=== PATIENT | female | born 1940 | race Caucasian/White ===

== ENCOUNTER → 2016-07-01 | Outpatient (CLI) | payer OTHER, MEDICARE ==
[~2016-07-01] VITALS: Ht 160 cm; Wt 96.2 kg
[~2016-07-01] MED LIST: AMBIEN 10 MG TA10 MG PO; APAP500 PO; APAP650 PO; ATIVAN; AUGMENTIN 875875 M1 PO; B COMPLEX-VITA1 EACH PO; CELEBREX; CELEBREX 200 M200 MG PO; CYMBALTA30 MG PO; DEPO-ESTRAD5 MG/1 ML IM; DILAUDID 2 MG TA2 MG PO; FUROSEMIDE 40 M40 M1 PO; LEVOTHROID150 MC1 PO; LEVOTHROID300 MCG PO; LEVOTHYROXINE0.2 M1 PO; LEXAPRO 10 MG T10 M1 PO; LIDODERM 5%1 PATCH TOP; LOMOTIL TABLET1 EACH PO; LOTENSIN20 MG PO; MS CONTIN15 MG PO; MULTI-VITAMIN1 EAC5 PO; MULTIVITAMINS; NEXIUM40 MG PO; NORCO 10-325 T1 EACH PO; NORCO 7.5-3251 EACH PO; NORVASC5 MG PO; OXYCONTIN15 MG PO; OXYCONTIN20 M1 PO; PERCOCET 5-3251 EACH PO; PERCOCET 7.5-31 EACH PO; PRENATAL; PROZAC20 MG/5 ML PO; SEROQUEL; SEROQUEL 50 MG50 M1 NG; SEROQUEL 50 MG50 MG PO; TOPROL XL 100M100 M1 PO; TOPROL XL50 MG PO; TRAZODONE HCL50 MG PO; TRIAMTERENE-HC1 EAC1; ULTRAM 50MG TAB50 MG PO; VALIUM10 MG PO; VITAMIN D 5050000 I1 PO; VOLTAREN GEL 1100 G1 TOP; XANAX 0.25 MG0.25 MG PO; unknown meds
--- NOTE | ~2016-07-01 | HPC ---
[facility] [place] [address] PAIN MANAGEMENT CONSULTATION Name: EMILYBASILIA [id number] Admission: 07/01/16 Attend Phys: Foreign Mir DO Discharge: Date of : 39 Report #: [id number] THIS REPORT FOR: //name// CC: Zee Mir The patient is a 76-year-old female, well known to the pain clinic, typically treated for lumbar radiculopathy, status post decompressive laminectomy, axial back pain, lumbar spondylosis, DJD affecting knees and hips, requiring complex medication management. Last seen in the pain clinic on 06/03/2015. We had rotated from OxyContin 20 mg b.i.d. to MS Contin 15 mg q. 8 hours due to cost concerns. We had rotated from hydrocodone to hydromorphone. Due to lack of efficacy, we have rotated back to hydrocodone 10/325 one tablet 2-3 times a day at last visit. Continue Voltaren gel topically for her knees, Xanax 0.25 mg at bedtime for sleep. The patient had also resumed gabapentin. She has been on this off and on for many years. Started back on one in the morning and two at night. She returns to pain clinic today, we had a prolonged visit from 09:10 to 09:35. Greater than 50% of this 25-minute visit was spent counseling the patient, reviewing therapeutic options. In retrospect, we have given the patient a host of interventional therapies, unfortunately most recently, these interventions have really afforded nominal efficacy, including epidural injection on 04/02/2016. Prior she had had epidural injection back in 2013 and 2011. Really all with no efficacy. We had done some facet joint injections, all with transient efficacy. We have been basically medically managing the patient with various medication, she has had trouble with escalation of opiates in the past. She returns to pain clinic today noting that when she started back on gabapentin, she developed profound lower extremity edema. She discontinued the gabapentin that seemed to improve, curiously she states she developed palmar pruritus attributed to the morphine. She discontinued morphine and claims that the itching in her palms got better. She has continued with hydrocodone 10/325 up to 2-3 a day, does not afford adequate efficacy. Rates her pain on 9-10 on a 0-10 visual analog scale. She states she felt nauseous for a few days after she stopped the morphine. I suspect this was a component of opiate withdrawal symptoms. PHYSICAL EXAMINATION: Today, she is a 76-year-old female, elevated BMI of 37.6 kilograms per meter squared. Blood pressure is modestly elevated as well 145/92, pulse 103, respirations are 14. Alert and oriented to person, place and time, judged to be a reasonable historian. Rises from the chair using armrest. Has an antalgic gait. Modestly ataxic. Though she admits to no falls recently, [facility] [address] [place] [address] PAIN MANAGEMENT CONSULTATION Name: EMILYBASILIA Room #: REG LIVE Bustos#: [id number] Admission: 07/01/16 Attend Phys: Foreign Mir, Discharge: Date of : 39 Report #: [id number] has loss of left dorsiflexion strength, otherwise lower extremity strength is diminished, but symmetric. Straight leg raise is negative at this time. She has tenderness across the low back. ASSESSMENT: Lumbar radiculopathy status post decompressive laminectomy, axial back pain, lumbar spondylosis; degenerative joint disease primarily affecting lower extremities, hips, and knees, requiring complex medication management. We reviewed the fact that opiate medications are being used to provide analgesia adequate to support activities of daily living, not attempting to achieve a specific pain score on the 0-10 Visual Analog Scale. The current opiate medications are providing sufficient analgesia to allow the patient to participate in activities of daily living. The patient is not exhibiting any aberrant behavior suggestive of drug diversion. The patient is not having any adverse reactions to medications. The patient is not suffering from daytime somnolence or mental acuity changes. The patient is managing opiate-induced constipation with appropriate fobg-rqv-bzgdaqn agents and dietary considerations. The patient was counseled on concern for caution with operating a motor vehicle while using opiate medications. A physical exam was performed and the patient's functional status was evaluated. All patients with back pain were advised against the bed rest greater than 4 days and were advised to return to normal activities. Pain score assessment was noted and the treatment plan was reviewed with the patient. All current medications, both prescribed and OTC were reviewed and reconciled on the electronic medical record. Tobacco screening was accomplished and smoking cessation was advised when indicated. BMI was noted and diet/exercise modification was recommended for all patients following outside normal parameters. I reviewed with the patient today their responsibilities to safeguard prescription medications, reviewed their responsibility to utilize medications only as prescribed by the physician. They are to seek and receive pain medications only from 1 physician group ( [facility]). They are to use 1 pharmacy and keep the clinic informed if they change pharmacies. Their responsibilities include making followup visits in a timely fashion and to avoid abrupt discontinuation of medication usage. Their responsibilities further include bringing their medications (bottles from the pharmacy with residual pills) to the visit for possible confirmation of pill counts and the patient understands it is their responsibility to submit to random drug screens to ensure both that the medications prescribed are present, and that no other controlled substances are present. All prescriptions provided today were generated electronically. RECOMMENDATIONS: 1. Urine drug screen today. No aberrant behavior suggestive for drug [address] [address] PAIN MANAGEMENT CONSULTATION Name: EMILYBASILIA M Room #: REG [facility] Juli#: [id number] Admission: 07/01/16 Attend Phys: Foreign Mir DO Discharge: Date of : 39 Report #: [id number] diversion, simply complying with our opiate consent to treat contract, noticing that it has been quite some time since her last urine drug screen, in fact, it appears the last one was in 2009. 2. We will revert back to hydrocodone 10/325, limit 4 tablets a day with no long acting opiate. Obviously discontinue gabapentin, and we will not consider restarting this as she has had significant lower extremity edema with this. Continue Voltaren gel topically for her knees. Xanax 0.25 mg at bedtime to help with sleep. Continue to follow up with her mechanic general operational test physician for chronic anxiety medications including Seroquel and trazodone. I have taken the liberty of writing for 3 months of current medication. Follow up at that time, earlier if needed. <ELECTRONICALLY SIGNED> By: Foreign Mir DO 07/02/16 0704 [id number] [id number] Foreign Mir DO /isaac
[2016-07-01 08:55] VITALS: BP 145/92
== END | disposition home or self-care (01) ==
LOC: PAIN 06:42
DX: M47.896 Other spondylosis, lumbar region (principal); G89.29 Other chronic pain; M54.9 Dorsalgia, unspecified; M16.0 Bilateral primary osteoarthritis of hip; M17.0 Bilateral primary osteoarthritis of knee; Z98.890 Other specified postprocedural states; Z87.891 Personal history of nicotine dependence

== ENCOUNTER → 2016-09-20 | Outpatient (CLI) | payer OTHER, MEDICARE ==
[~2016-09-20] VITALS: Ht 160 cm; Wt 93.4 kg
[~2016-09-20] MED LIST changes: +KLONOPIN0.5 MG PO
--- NOTE | ~2016-09-20 | HPC ---
[facility] [address] [place] [address] PAIN MANAGEMENT CONSULTATION Name: EMILYBASILIA Room #: REG [facility].#: [id number] Admission: 09/20/16 Attend Phys: Foreign Mir DO Discharge: Date of : 39 Report #: [id number] THIS REPORT FOR: //name// CC: Zee Mir SUBJECTIVE: The patient is a 76-year-old female, long treated for symptomatic lumbar radiculopathy status post decompressive laminectomy, lumbar spondylosis, DJD affecting knees requiring complex medication management. She is status post bilateral total knee arthroplasties. The left knee still has a little genu valgum deformity. We stopped the morphine at last visit, continue hydrocodone 10/325 four a day. Discontinued gabapentin due to his lower extremity edema. Tried low dose Xanax for sleep. We discontinued the morphine due to puritis. She returns to pain clinic today. She states medicines are actually doing fairly well except for sleep. She rates her pain an 8-9 on a 0-10 visual analog scale. States that she has difficult time with some of her housekeeping and walking. Otherwise, she notes she is having no side effects from the current medication. She notes her back surgery is some 10 years ago. She still has ongoing axial back pain. Epidural injections have not really afforded good relief. PHYSICAL EXAMINATION: VITAL SIGNS: A 76-year-old female, BMI is 36.5 kilograms per meter squared. Blood pressure is modestly elevated at 160/79, pulse 84, respirations 16. EXTREMITIES: Left leg does show some weakness compared to the right, perhaps 3-4/5, to all muscle groups tested; right is about 4/5. Straight leg raise is negative. Again, genu valgum deformity of the left knee, both knees are status post knee arthroplasties. Patellar and Achilles reflexes are absent. We reviewed the fact that opiate medications are being used to provide analgesia adequate to support activities of daily living, not attempting to achieve a specific pain score on the 0-10 Visual Analog Scale. The current opiate medications are providing sufficient analgesia to allow the patient to participate in activities of daily living. The patient is not exhibiting any aberrant behavior suggestive of drug diversion. The patient is not having any adverse reactions to medications. The patient is not suffering from daytime somnolence or mental acuity changes. The patient is managing opiate-induced constipation with appropriate ynxt-zab-yzanqgi agents and dietary considerations. The patient was counseled on concern for caution with operating a motor vehicle while using opiate medications. A physical exam was performed and the patient's functional status was evaluated. All patients with back pain were advised against the bed rest greater than [address] [place] [address] PAIN MANAGEMENT CONSULTATION Name: BASILIA DIAZ Room #: REG [facility] Bustos#: [id number] Admission: 09/20/16 Attend Phys: Foreign Mir DO Discharge: Date of : 39 Report #: [id number] days and were advised to return to normal activities. Pain score assessment was noted and the treatment plan was reviewed with the patient. All current medications, both prescribed and OTC were reviewed and reconciled on the electronic medical record. Tobacco screening was accomplished and smoking cessation was advised when indicated. BMI was noted and diet/exercise modification was recommended for all patients following outside normal parameters. I reviewed with the patient today their responsibilities to safeguard prescription medications, reviewed their responsibility to utilize medications only as prescribed by the physician. They are to seek and receive pain medications only from 1 physician group ( [facility]). They are to use 1 pharmacy and keep the clinic informed if they change pharmacies. Their responsibilities include making followup visits in a timely fashion and to avoid abrupt discontinuation of medication usage. Their responsibilities further include bringing their medications (bottles from the pharmacy with residual pills) to the visit for possible confirmation of pill counts and the patient understands it is their responsibility to submit to random drug screens to ensure both that the medications prescribed are present, and that no other controlled substances are present. All prescriptions provided today were generated electronically. RECOMMENDATION: Long discussion with the patient today about therapeutic option. We have elected to continue hydrocodone 10/325, max of 4 a day. We have elected to rotate Xanax to 0.5 mg clonazepam at bedtime to help with sleep. Continue Voltaren gel topically. Follow up in 2 months for reevaluation. We will want to get a urine drug screen at that time. <ELECTRONICALLY SIGNED> By: Foreign Mir DO 09/22/16 1252 [id number] Foreign Mir DO /nt
[2016-09-20 14:32] VITALS: BP 160/79
== END | disposition home or self-care (01) ==
LOC: PAIN 06:48
DX: M54.16 Radiculopathy, lumbar region (principal); Z98.890 Other specified postprocedural states; M47.896 Other spondylosis, lumbar region; M17.0 Bilateral primary osteoarthritis of knee; I87.1 Compression of vein; Z87.891 Personal history of nicotine dependence

== ENCOUNTER → 2016-12-10 | Outpatient (CLI) | payer OTHER, MEDICARE ==
[~2016-12-10] VITALS: Ht 160 cm; Wt 97.1 kg
[~2016-12-10] MED LIST changes: +QUINIDINE GLUC324 MG PO
--- NOTE | ~2016-12-10 | HPC ---
[facility] [address] [place] [address] PAIN MANAGEMENT CONSULTATION Name: EMILYBASILIA M Room #: REG [facility].#: [id number] Admission: 12/10/16 Attend Phys: Foreign Mir DO Discharge: Date of : 39 Report #: [id number] THIS REPORT FOR: //name// CC: Zee Mir HISTORY OF PRESENT ILLNESS: The patient is a very pleasant 76-year-old female well known to pain clinic, typically treated for lumbar radiculopathy status post decompressive laminectomy, lumbar spondylosis, requiring high risk complex medication management. History of DJD affecting knees and shoulders. We had tried MS Contin in the past. She had had pruritus. I believe she has a topical reaction to fentanyl patch. She has been stable on hydrocodone 10/325 four a day for some time, Voltaren gel topically for DJD. We had rotated from Xanax to clonazepam at bedtime to help with sleep. He returns to pain clinic today noting generally pain is 8-9 on a VAS. Having more pain lately in low back, cramping, no specific inciting factor. She describes sharp, aching, cramping pain, exacerbated with any and all axial bending as well as lifting. PHYSICAL EXAMINATION: Shows 76-year-old female, BMI is 37.9 kilograms per meter squared. Blood pressure is modestly elevated at 148/86, pulse 82, respirations 16. Rises from chair using armrest. Has a little thoracic kyphosis, antalgic gait, endomorphic build with a BMI of 37.9 kilograms per meter squared. Lower extremity strength is diminished, but symmetric diffuse axial tenderness. We reviewed the fact that opiate medications are being used to provide analgesia adequate to support activities of daily living, not attempting to achieve a specific pain score on the 0-10 Visual Analog Scale. The current opiate medications are providing sufficient analgesia to allow the patient to participate in activities of daily living. The patient is not exhibiting any aberrant behavior suggestive of drug diversion. The patient is not having any adverse reactions to medications. The patient is not suffering from daytime somnolence or mental acuity changes. The patient is managing opiate-induced constipation with appropriate rfih-bvh-ldqfcvx agents and dietary considerations. The patient was counseled on concern for caution with operating a motor vehicle while using opiate medications. A physical exam was performed and the patient's functional status was evaluated. All patients with back pain were advised against the bed rest greater than 4 days and were advised to return to normal activities. Pain score assessment was noted and the treatment plan was reviewed with the patient. All current medications, both prescribed and OTC were reviewed and reconciled on the electronic medical record. Tobacco screening was accomplished and smoking cessation was advised when indicated. BMI was noted and diet/exercise modification was recommended for all patients following outside normal [address] [address] PAIN MANAGEMENT CONSULTATION Name: BASILIA DIAZ [id number] Admission: 12/10/16 Attend Phys: Foreign Mri DO Discharge: Date of : 39 Report #: [id number] parameters. I reviewed with the patient today their responsibilities to safeguard prescription medications, reviewed their responsibility to utilize medications only as prescribed by the physician. They are to seek and receive pain medications only from 1 physician group ( [facility]). They are to use 1 pharmacy and keep the clinic informed if they change pharmacies. Their responsibilities include making followup visits in a timely fashion and to avoid abrupt discontinuation of medication usage. Their responsibilities further include bringing their medications (bottles from the pharmacy with residual pills) to the visit for possible confirmation of pill counts and the patient understands it is their responsibility to submit to random drug screens to ensure both that the medications prescribed are present, and that no other controlled substances are present. All prescriptions provided today were generated electronically. ASSESSMENT: Symptomatic lumbar radiculopathy status post decompressive laminectomy, component of axial back pain, lumbar spondylosis, degenerative joint disease affecting knees and shoulders, requiring high risk complex medication management. RECOMMENDATIONS: We suggested trialing quinine sulphate 325 mg at bedtime to help with nighttime spasm. Continue diclofenac gel, continue hydrocodone 10/325 up to 4 a day unchanged, continue Klonopin 0.5 at bedtime and Voltaren gel topically. The patient was discharged today in good and stable condition. I did get a buccal drug swab, last urine drug screen on 07/01/2016 did not show hydrocodone, I have very little index of suspicion for noncompliance. If there is an abnormal finding, i.e. lack of hydrocodone on the buccal swab, then we will need to reevaluate treatment care. The patient was discharged in good and stable condition. <ELECTRONICALLY SIGNED> By: Foreign Mir DO 12/16/16 0847 1236 [id number] Foreign Mir DO /nt
[2016-12-10 13:34] VITALS: BP 148/86
== END ==
LOC: PAIN 13:18
DX: Z76.0 Encounter for issue of repeat prescription (principal); M54.16 Radiculopathy, lumbar region; M96.1 Postlaminectomy syndrome, not elsewhere classified; M47.896 Other spondylosis, lumbar region; M17.0 Bilateral primary osteoarthritis of knee; M19.012 Primary osteoarthritis, left shoulder; M19.011 Primary osteoarthritis, right shoulder

== ENCOUNTER → 2017-05-13 | Outpatient (CLI) | payer OTHER, MEDICARE ==
[~2017-05-13] VITALS: Ht 160 cm; Wt 102.8 kg
[~2017-05-13] MED LIST changes: +LYRICA 75 MG CA75 MG PO; +LYRICA100 MG PO; +MOBIC15 MG PO; +QUININE SULFAT324 MG PO; +VOLTAREN GEL 1100 G2 TOP
--- NOTE | ~2017-05-13 | HPC ---
[facility] [place] [address] PAIN MANAGEMENT CONSULTATION Name: BASILIA DIAZ Room #: REG [facility] Jose Angel.#: [id number] Admission: 05/13/17 Attend Phys: Foreign Mir, DO Discharge: Date of : 39 Report #: [id number] THIS REPORT FOR: //name// CC: Zee Mir The patient is a very pleasant 77-year-old female, long known to the pain clinic. She is typically treated for lumbar radiculopathy, status post decompressive laminectomy, lumbar spondylosis, requiring high risk complex medication management. Last seen in the pain clinic 02/25/2017. Prior buccal swab 12/14/2016 was positive for hydrocodone as expected. The patient has been stable on hydrocodone 10/325 about 4 a day, clonazepam 0.5 at bedtime, Voltaren gel topically. We had trialled Lyrica at last visit. She had failed gabapentin. While it was efficacious, she had significant fluid retention. We had had a long discussion last visit. The patient's son had been diverting some of her hydrocodone. Son is now out of the house. The patient returns to pain clinic today. She is seen in company of her who is supportive. Mr. Diaz and the patient notes that her functional status is declining a bit. She rates her pain quite high at 9 on VAS. Pain impact score is moderately low 25/70, but she does have significant pain across the back, buttock, and leg. BMI is elevated at 40.2 kilograms per meter squared. Blood pressure is nominally elevated 157/85, pulse 82, respiration 16. History of hypertension, medicines were reconciled. Opiate risk assessment tool was completed. She scored relatively low. Last opiate consent to treat contract was 11/28/2015. Former tobacco user. She does not smoke presently. Rises from chair using armrest. Again, antalgic gait, stooped posture, somewhat kyphotic. 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 She only has 1 kidney. I suggested she not use anti-inflammatory medications. She does have some significant pretibial edema, right greater than left, +2 on the right, perhaps 1-2 on the left. Significant loss of strength in the left leg, which is chronic, about 2-3/5 for all muscle groups tested, 3-4/5 on the right. Straight leg raise fortunately is negative. She denies saddle anesthesia or bowel or bladder continence changes. We reviewed the fact that opiate medications are being used to provide analgesia adequate to support activities of daily living, not attempting to achieve a specific pain score on the 0-10 Visual Analog Scale. The current opiate medications are providing sufficient analgesia to allow the patient to participate in activities of daily living. The patient is not exhibiting any aberrant behavior suggestive of drug diversion. The patient is not having any adverse reactions to medications. The patient is not suffering from daytime somnolence or mental acuity changes. The patient is managing opiate-induced constipation with appropriate cjip-cvm-ufywceq agents and dietary considerations. The patient was counseled on concern for caution with operating [address] [address] PAIN MANAGEMENT CONSULTATION Name: BASILIA DIAZ Room #: REG Sabi Bustos#: [id number] Admission: 05/13/17 Attend Phys: Foreign Mir DO Discharge: Date of : 39 Report #: [id number] a motor vehicle while using opiate medications. A physical exam was performed and the patient's functional status was evaluated. All patients with back pain were advised against the bed rest greater than 4 days and were advised to return to normal activities. Pain score assessment was noted and the treatment plan was reviewed with the patient. All current medications, both prescribed and OTC were reviewed and reconciled on the electronic medical record. Tobacco screening was accomplished and smoking cessation was advised when indicated. BMI was noted and diet/exercise modification was recommended for all patients following outside normal parameters. I reviewed with the patient today their responsibilities to safeguard prescription medications, reviewed their responsibility to utilize medications only as prescribed by the physician. They are to seek and receive pain medications only from 1 physician group ( [facility]). They are to use 1 pharmacy and keep the clinic informed if they change pharmacies. Their responsibilities include making followup visits in a timely fashion and to avoid abrupt discontinuation of medication usage. Their responsibilities further include bringing their medications (bottles from the pharmacy with residual pills) to the visit for possible confirmation of pill counts and the patient understands it is their responsibility to submit to random drug screens to ensure both that the medications prescribed are present, and that no other controlled substances are present. All prescriptions provided today were generated electronically. ASSESSMENT: Chronic pain requiring complex medication management, lumbar spondylosis and lumbar radiculopathy status post decompressive laminectomy. RECOMMENDATIONS: Continue hydrocodone 10/325 one tablet 4 times a day. Continue clonazepam 0.5 at bedtime and Lyrica 75 mg b.i.d. She was given samples of the latter agent. I have taken the liberty of writing for 3 months of current medication. On an interesting note, the patient tells me that her granddaughter is engaged to the [place]'s accountant cost. They were pleased that family dynamic is more functional now that her son is out of the state. Discharged in good stable condition. <ELECTRONICALLY SIGNED> By: Foreign Mir DO 05/16/17 0715 1216 [id number] Foreign Mir DO /nt
[2017-05-13 12:49] VITALS: BP 157/85
== END ==
LOC: PAIN 07:10
DX: M54.16 Radiculopathy, lumbar region (principal); M47.896 Other spondylosis, lumbar region; Z98.890 Other specified postprocedural states; Z79.899 Other long term (current) drug therapy

== ENCOUNTER → 2018-01-11 | Outpatient (CLI) | payer OTHER, MEDICARE ==
[~2018-01-11] VITALS: Ht 160 cm; Wt 109.8 kg
[~2018-01-11] MED LIST changes: -VOLTAREN GEL 1100 G2 TOP
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
[2018-01-11 12:45] VITALS: BP 119/65
== END ==
LOC: PAIN 06:56
DX: M54.5 Low back pain (principal); M79.605 Pain in left leg; I10 Essential (primary) hypertension; M19.90 Unspecified osteoarthritis, unspecified site; Z87.891 Personal history of nicotine dependence; Z79.899 Other long term (current) drug therapy

== ENCOUNTER → 2018-02-10 | Outpatient (CLI) | payer OTHER, MEDICARE ==
[~2018-02-10] VITALS: Ht 160 cm; Wt 114.3 kg
[~2018-02-10] MED LIST changes: +VOLTAREN GEL 1100 G2 TOP
--- NOTE | ~2018-02-10 | HPC ---
[facility] [address] [address] PAIN MANAGEMENT CONSULTATION Name: BASILIA DIAZ Room #: REG [facility]#: [id number] Admission: 02/10/18 Attend Phys: Janneth Malone Discharge: Date of : 39 Report #: [id number] THIS REPORT FOR: //name// CC: Janneth House DATE OF SERVICE: 02/10/2018 CHIEF COMPLAINT: Left hip, low back and left leg pain. Here for medication refills. HISTORY OF PRESENT ILLNESS: This is a very pleasant 77-year-old female who has seen Dr. Foreign Mir in the past and Dr. Mo Stanton last month for her chronic axial back pain status post decompression laminectomies and leg pain. The patient is here for medication refill and followup from her last visit when her oxygen level was decreased and she went to the hospital to be checked out. The patient reports to me today that they have her wearing 4 liters of oxygen all the time. They found a small blockage behind her heart, possible blood clot. She was on blood thinners while in the hospital, but does not continue any blood thinners at this time. The patient also was found to have her thyroid at a subtherapeutic level and that medicine was increased. The patient does still have significant edema in her lower extremities. She tells me that it is reduced when she is in bed and tries to keep her legs elevated as much as possible. Her pain score today is 10/10, sharp, achy, cramping pain, especially in her left leg; worse with activity, standing and walking. She tells me that her medications and heat do help her pain. ALLERGIES: CODEINE AND ADHESIVE TAPE. CURRENT MEDICATIONS: Voltaren gel, quinine sulfate, hydrocodone 10/325 four times a day, Lyrica 100 mg at bedtime, clonazepam 0.5 at bedtime, trazodone 50 mg at bedtime, Norvasc 5 mg twice a day, Seroquel 400 mg at bedtime, multivitamin, Lasix 40 mg daily, Synthroid 200 mcg daily, multivitamin, Toprol-XL, vitamin D 50,000 units. PQRS: 1. History of osteoarthritis in her upper and lower extremities, bilateral. Denies rheumatoid arthritis. 2. Height 5 feet 3 inches, weight 252, BMI is 44.7. 3. Vital signs: Blood pressure 130/78, pulse is 81, respiration is 14, oxygen level is 94% on 4 liters. 4. Pain score is 10/10. 5. Fall risk: Denies dizziness. Does not need help walking or standing. Has not fallen in the last 3 months. She is in a wheelchair today for easier movement. [facility] [address] [place] [address] PAIN MANAGEMENT CONSULTATION Name: BASILIA DIAZ Room #: REG [facility].#: [id number] Admission: 02/10/18 Attend Phys: Janneth Malone Discharge: Date of : 39 Report #: [id number] 6. Denies blood thinners. 7. History of hypertension. 8. Opiate therapy greater than 6 weeks, opioid signed contract is on the chart. 9. Risk assessment is low. Her functional assessment is 57/70. 10. Recreational drug use she denies. She is a former smoker and does not drink alcohol. [place] and [place] PDMP were checked. The patient is filling her hydrocodone by Dr. Stanton most recently, but there is a fill from Dr. Hector Mishra, who is her primary doctor, who has seen one time only for 14 days when she went to the Emergency Room. So the patient is due for her medications today. We will address this with the patient further reminding her of her opioid contract. PHYSICAL EXAMINATION: GENERAL: The patient is a well-developed white female, sitting in a wheelchair today. Her affect is appropriate. Speech is fluent. HEENT: Normocephalic, atraumatic. Extraocular eye muscles are intact. Mucous membranes are moist. Hearing is intact. ABDOMEN: Nontender. EXTREMITIES: Upper extremity strength to be judged 4/5 bilaterally. Lower extremities, complains of pain in her lower back and her left leg radiating down to her foot. Motor strength to be judged 4/5 in her lower extremities. Significant edema noted, 3 to 4+ edema in bilateral feet today. IMPRESSION: 1. Chronic lumbar radiculopathy, status post lumbar decompression laminectomy. 2. Axial back pain. 3. Lumbosacral spondylosis with myelopathy. 4. Congestive heart failure. We reviewed the fact that opiate medications are being used to provide analgesia adequate to support activities of daily living, not attempting to achieve a specific pain score on the 0-10 Visual Analog Scale. The current opiate medications are providing sufficient analgesia to allow the patient to participate in activities of daily living. The patient is not exhibiting any aberrant behavior suggestive of drug diversion. The patient is not having any adverse reactions to medications. The patient is not suffering from daytime somnolence or mental acuity changes. The patient is managing opiate-induced constipation with appropriate gije-fgp-ipzuehd agents and dietary considerations. The patient was counseled on concern for caution with operating a motor vehicle while using opiate medications. A physical exam was performed and the patient's functional status was evaluated. All patients with back pain were advised against the bed rest greater than 4 days and were advised to return to normal activities. Pain score assessment was noted and the treatment plan was reviewed with the patient. All current [facility] [address] [place] [address] PAIN MANAGEMENT CONSULTATION Name: BASILIA DIAZ Room #: REG [facility].#: [id number] Admission: 02/10/18 Attend Phys: Janneth Malone Discharge: Date of : 39 Report #: [id number] medications, both prescribed and OTC were reviewed and reconciled on the electronic medical record. Tobacco screening was accomplished and smoking cessation was advised when indicated. BMI was noted and diet/exercise modification was recommended for all patients following outside normal parameters. I reviewed with the patient today their responsibilities to safeguard prescription medications, reviewed their responsibility to utilize medications only as prescribed by the physician. They are to seek and receive pain medications only from 1 physician group ( [facility]). They are to use 1 pharmacy and keep the clinic informed if they change pharmacies. Their responsibilities include making followup visits in a timely fashion and to avoid abrupt discontinuation of medication usage. Their responsibilities further include bringing their medications (bottles from the pharmacy with residual pills) to the visit for possible confirmation of pill counts and the patient understands it is their responsibility to submit to random drug screens to ensure both that the medications prescribed are present, and that no other controlled substances are present. All prescriptions provided today were generated electronically. PLAN: 1. The patient is seen today for followup for her medication management refills. Lyrica 100 mg 1 p.o. at bedtime, #30 with one additional refill was given. The patient tells me that she had edema in her lower extremities prior to starting Lyrica. So, we discussed possibly decreasing that based on this fact, but the patient thinks that that is not the cause of her lower extremities edema. The patient thinks it is just related to her congestive heart failure. 2. [place]coe one p.o. q.i.d. today in 4 weeks, scripts for #120 were given. We will follow the patient in 2 months to just see how she is doing and her MME is 40, which is under the CDC guidelines and we will probably go back 3 month refills for this patient, but based on her recent health changes we will follow up with her in 2 months. Clonazepam 0.5 mg 1 p.o. at bedtime with one refill, given as well as Voltaren gel 1% given today. The patient tells me she is not having any problems with constipation or daytime somnolence. So no medication is needed for that currently. 3. The patient was agreeable with his plan of care. We will follow up in 2 months for medication management. The patient seen in collaboration with Dr. Mo Stanton today. <ELECTRONICALLY SIGNED> By: Janneth Malone 02/13/18 0719 [id number] Janneth Malone /nt
[2018-02-10 10:26] VITALS: BP 130/78
== END ==
LOC: PAIN 06:48
DX: M54.16 Radiculopathy, lumbar region (principal); G89.29 Other chronic pain; M54.5 Low back pain; M47.16 Other spondylosis with myelopathy, lumbar region; I50.9 Heart failure, unspecified; M96.1 Postlaminectomy syndrome, not elsewhere classified; Z79.899 Other long term (current) drug therapy

== ENCOUNTER → 2018-03-31 | Outpatient (CLI) | payer OTHER, MEDICARE ==
[~2018-03-31] VITALS: Ht 160 cm; Wt 107.0 kg
--- NOTE | ~2018-03-31 | HPC ---
[facility] [address] [address] PAIN MANAGEMENT CONSULTATION Name: BASILIA DIAZ Room #: REG [facility].#: [id number] Admission: 03/31/18 Attend Phys: Francis Stanton MD Discharge: Date of : 39 Report #: [id number] THIS REPORT FOR: //name// CC: Zee Stanton DATE OF SERVICE: 03/31/2018 CHIEF COMPLAINT: Left hip and shoulder pain, here for medication refill. HISTORY OF PRESENT ILLNESS: The patient is a very pleasant 77-year-old female who has been followed in the Pain Clinic. She has a history of chronic back pain along the axial area. Also, she is status post decompressive lumbar laminectomy with lumbosacral spondylosis without myelopathy. She has chronic pain syndrome, which requires complex medical management to help control her pain. She appears to be taking her medication as prescribed. She is having no problems with the medications. She is on oxygen. Her sats have been in the 90s. She indicates that she is doing better. She does have a history of congestive heart failure. She is having less discomfort at this point. Rates her pain as an 8/10. She continues to have pain in the low back area with pain radiating down the left leg with some aching and cramping sensation. Standing and activities of daily living such as lifting and bending are problematic. Notes that her medications, heat and rest continue to be consoling. ALLERGIES: CODEINE, ADHESIVE TAPE. PAIN CLINIC ASSESSMENT AND PQRS: 1. Osteoarthritis: The patient has osteoarthritic change in the lower extremity and has had surgery in her back. She has some problems in the right upper extremity as well. The patient is not being treated for rheumatoid arthritis. 2. Height 5 feet 3 inches, weight 236 pounds, BMI is 41. 3. Vital signs: Blood pressure 138/81, pulse 97, respiratory rate 16, room air saturation 99%. 4. Pain intensity: 8/10. 5. Fall risk: The patient has not fallen in the last 3 months. 6. Blood thinner: The patient is not on a blood thinning medication. 7. Hypertension: The patient is being treated for hypertension. 8. Opioid medication: The patient is receiving opioid medications from the Pain Clinic. 9. Risk assessment tool: 04/13 for opioid risk, which is low. 10. Functional assessment tool: . 11. Recreational drug use: The patient denies. 12. Tobacco: The patient is a former smoker, does not smoke at this point. 13. Alcohol: The patient denies use of alcoholic beverages. [address] [address] PAIN MANAGEMENT CONSULTATION Name: EMILYBASILIA Room #: REG [facility]#: [id number] Admission: 03/31/18 Attend Phys: Francis Stanton MD Discharge: Date of : 39 Report #: [id number] PHYSICAL EXAMINATION: GENERAL: The patient is a well-developed, well-nourished, white female. She is sitting in a wheelchair. She is alert and oriented x 3. Speech is fluent. HEENT: Normocephalic, atraumatic. Extraocular eye muscles intact. Sclerae nonicteric. Mucous membranes are moist. ABDOMEN: Nontender. MUSCULOSKELETAL: Upper extremity muscle strength is judged to be 4/5. Lower extremity muscle strength is judged to be 4/5. The patient has some significant edema in the lower extremities, +3 edema. IMPRESSION: 1. Chronic lumbar radicular pain, status post lumbar decompression laminectomy. 2. Axial back pain. 3. Lumbar spondylosis with myelopathy. 4. History of congestive heart failure. RECOMMENDATIONS: We discussed treatment options with the patient. We will renew the patient's medications. A script for Lyrica, Voltaren, clonazepam, and hydrocodone were rewritten. The patient will continue with these medications. She will call us if she has any concerns regarding their use. We would like to thank you for letting us participate in her care. We hope she continues to improve. By: [id number] Francis Stanton MD /isaac
[2018-03-31 12:54] VITALS: BP 138/81
== END ==
LOC: PAIN 12:41
DX: M54.16 Radiculopathy, lumbar region (principal); M54.12 Radiculopathy, cervical region; M47.16 Other spondylosis with myelopathy, lumbar region; I50.9 Heart failure, unspecified; M96.1 Postlaminectomy syndrome, not elsewhere classified; Z79.899 Other long term (current) drug therapy

== ENCOUNTER → 2018-05-23 | Outpatient (CLI) | payer OTHER, MEDICARE ==
[~2018-05-23] VITALS: Ht 160 cm; Wt 102.8 kg
[~2018-05-23] MED LIST changes: +CLONIDINE0.1 PO; +LOSARTAN POTASS50 MG PO
[2018-05-23 12:51] VITALS: BP 103/70
--- NOTE | 2018-05-23 13:00 | NUR ---
Pain Clinic Assessment: 1. History of Osteoarthritis: Left Lower Extremity Left Upper Extremity Right Lower Extremity Right Upper Extremity History of Rheumatoid Arthritis: Not Applicable 2. Height: 5 ft. 3 in. 160.0 cm. Weight: 226.6 lb. oz. 102.785 kg. Patient's BMI: 40.2 3. Vital Signs: BP: 103/70 Pulse: 81 Resp: 20 Temp: 02 Sat: 96 ECG Mon: 4. Pain Intensity: 10 5. Fall Risk: Dizziness: Y Needs help standing or walking: Y Fallen in the last 3 months: N Fall risk comments: 6. Patient on Blood Thinner: None 7. History of Hypertension: Y 8. Opioid Therapy greater than 6 weeks: Y Opiate Contract Signed: 11/28/15 9. Risk Assessment Tool Provided: LOW RISK 04/13 10. Functional Assessment Tool: 11. Recreational Drug Use: Never Drug Type: Tobacco Use: Former Smoker Tobacco Type: Amount or Packs/day: How Many Years: Alcohol Use: No Frequency: Quant:
--- NOTE | 2018-05-24 07:43 | HPC ---
[facility] [address] [address] PAIN MANAGEMENT CONSULTATION Name: BASILIA DIAZ Room #: REG [facility].#: [id number] Admission: 05/23/18 Attend Phys: Janneth Malone Discharge: Date of : 38 Report #: [id number] THIS REPORT FOR: //name// CC: Janneth Chew DATE OF SERVICE: 05/23/2018 CHIEF COMPLAINT: Left hip and shoulder pain and low back pain. HISTORY OF PRESENT ILLNESS: The patient returns to the pain clinic today for refill of her pain medications. She has a history of chronic back pain in the axial area. She has had lumbar laminectomies in the past. She also complains of left hip and shoulder pain. Today, she tells me she hurts all over. Her pain score is a 10. Her average pain score is 7/8. She tells me it is worse when she is walking, standing, doing activity, better with her medications and resting. She denies any constipation or daytime sleepiness. She tells me that it has been hard with the winter, she has had increased pain. They had no electricity for several days at their house and she said being cold what made her pain worse. She would like a refill of her medications today. ALLERGIES: CODEINE AND ADHESIVE TAPE. MEDICATIONS: Losartan 50 mg b.i.d., quinine 325 mg as needed, Lyrica 100 mg at bedtime, hydrocodone 10/325 q.i.d., Voltaren gel as needed, clonazepam 0.5 mg at bedtime, trazodone 50 mg at bedtime, amlodipine 5 mg b.i.d., Seroquel 400 mg at bedtime, Tylenol Arthritis as needed, multivitamin daily, Lasix 40 mg daily, Lomotil as needed, Synthroid 200 mcg daily, vitamin D daily and metoprolol 50 mg daily. PQRS: 1. She has osteoarthritis changes in her lower extremities as well as in her back. She denies rheumatoid arthritis. 2. Height is 5 feet 3 inches, weight is 226, BMI is 40. Vital signs 103/70, pulse is 81, respirations 20, oxygen sat is 96. 3. Pain score is 10/10. 4. Fall risk. She denies dizziness, needs help walking or standing. She is in a wheelchair today, has not fallen in the last 3 months. 5. The patient is not on any blood thinners. She does take hypertension medicines. 6. Opioid therapy is greater than 6 weeks, therefore, an opioid contract is on the chart. 7. Her risk assessment tool is low. Her functional assessment is 57/70. 8. Recreational drug use. She denies. She is a former smoker, [place] [address] PAIN MANAGEMENT CONSULTATION Name: EMILYBASILIA Moran [id number] Admission: 05/23/18 Attend Phys: Janneth Malone Discharge: Date of : 38 Report #: [id number] PRESCRIPTION MONITORING SYSTEM: We checked and the patient is filling appropriately from her medications and only filling by Dr. Stanton. We will check a drug screen on this patient today because it has been greater than one year since her last drug screen was obtained. PHYSICAL EXAMINATION: GENERAL: This is a well-developed, well-nourished white female who is obese. She is sitting in a wheelchair today. She is alert and orientated and her speech is fluent. HEENT: Normocephalic, atraumatic. Extraocular muscles are intact. Mucous membranes are moist. MUSCULOSKELETAL: Upper muscle strength judged to be 4/5 in her strength. Lower extremity strength judged to be 4/5 in all major muscle groups. She has edema noted in her lower extremities, 2+. Complains of pain across her lower back when she walked slightly today. She walked with an antalgic gait. ASSESSMENT: 1. Chronic lumbar radicular pain status post lumbar decompression laminectomy. 2. Axial back pain. 3. Lumbar spondylosis with myelopathy. 4. History of congestive heart failure. 5. Medication management under written opioid agreement. We reviewed the fact that opiate medications are being used to provide analgesia adequate to support activities of daily living, not attempting to achieve a specific pain score on the 0-10 Visual Analog Scale. The current opiate medications are providing sufficient analgesia to allow the patient to participate in activities of daily living. The patient is not exhibiting any aberrant behavior suggestive of drug diversion. The patient is not having any adverse reactions to medications. The patient is not suffering from daytime somnolence or mental acuity changes. The patient is managing opiate-induced constipation with appropriate hkzh-zxi-nymjopv agents and dietary considerations. The patient was counseled on concern for caution with operating a motor vehicle while using opiate medications. A physical exam was performed and the patient's functional status was evaluated. All patients with back pain were advised against the bed rest greater than 4 days and were advised to return to normal activities. Pain score assessment was noted and the treatment plan was reviewed with the patient. All current medications, both prescribed and OTC were reviewed and reconciled on the electronic medical record. Tobacco screening was accomplished and smoking cessation was advised when indicated. BMI was noted and diet/exercise modification was recommended for all patients following outside normal parameters. I reviewed with the patient today their responsibilities to safeguard [facility] [address] [place] [address] PAIN MANAGEMENT CONSULTATION Name: BASILIA DIAZ Room #: REG [facility]#: [id number] Admission: 05/23/18 Attend Phys: Janneth FLAKO Malone Discharge: Date of : 38 Report #: [id number] prescription medications, reviewed their responsibility to utilize medications only as prescribed by the physician. They are to seek and receive pain medications only from 1 physician group ( [facility]). They are to use 1 pharmacy and keep the clinic informed if they change pharmacies. Their responsibilities include making followup visits in a timely fashion and to avoid abrupt discontinuation of medication usage. Their responsibilities further include bringing their medications (bottles from the pharmacy with residual pills) to the visit for possible confirmation of pill counts and the patient understands it is their responsibility to submit to random drug screens to ensure both that the medications prescribed are present, and that no other controlled substances are present. All prescriptions provided today were generated electronically. PLAN: 1. We discussed treatment options with the patient today. The patient thought she was out of her hydrocodone scripts. I did call the pharmacy and verified that she has one script left for to be released on 05/31/2017, the patient though does need her Lyrica and clonazepam today. Scripts were written initially for all these medications. 2. The patient's nurse went in to obtain the buccal drug swab, at that time the patient did tell us that she has not had any hydrocodone for several days, unsure how many days that it has been since she is out early. She is unsure if she took them all or if someone took some of her medications. She is not due to be filled until 05/31/2018. 3. After speaking with Dr. Hector Mir, we decided to give the medicine, clonidine 0.1 mg 1 tablet a day that the patient may take if she experiences any withdrawal type symptoms. The patient tells me she is not experiencing any at the moment, her vital signs are 103/70, pulse is 81, respirations 20. The patient tells me she is not having any diarrhea. We gave this medication just in case she experienced withdrawal since she is not due to fill her medications until 05/31/2018. We did reiterate that she is to safeguard her medicines at all time that she is responsible for these medications. Therefore, she will be seen on a monthly basis from now on, no hydrocodone script was given today since she has one at the pharmacy to be released next week. 4. Scripts given today of clonazepam 0.5 mg #30 with 2 additional refills, and Lyrica 100 mg #30 with 2 additional refills as well as the clonidine. 5. The patient made appointment for 5 weeks' time period as she will be seen on a monthly basis for a while due to this loss of medications or taking them too soon. The patient is agreeable with this plan of care. She understands why she needs to be seen on a monthly basis. 6. The patient seen in collaboration with Dr. Hector Mir today. <ELECTRONICALLY SIGNED> By: Janneth Malone 05/24/18 [id number] [id number] Janneth Malone /isaac
== END ==
LOC: PAIN 05-17 08:34
DX: M47.16 Other spondylosis with myelopathy, lumbar region (principal); M54.16 Radiculopathy, lumbar region; M96.1 Postlaminectomy syndrome, not elsewhere classified; Z86.79 Personal history of other diseases of the circulatory system; Z87.891 Personal history of nicotine dependence

== ENCOUNTER → 2018-07-03 | Outpatient (CLI) | payer OTHER, MEDICARE ==
[~2018-07-03] VITALS: Ht 160 cm; Wt 102.5 kg
[2018-07-03 10:02] VITALS: BP 117/74
--- NOTE | 2018-07-03 10:04 | NUR ---
Pain Clinic Assessment: 1. History of Osteoarthritis: Left Lower Extremity Left Upper Extremity Right Lower Extremity Right Upper Extremity History of Rheumatoid Arthritis: Not Applicable 2. Height: 5 ft. 3 in. 160.0 cm. Weight: 226.0 lb. oz. 102.513 kg. Patient's BMI: 40.0 3. Vital Signs: BP: 117/74 Pulse: 85 Resp: 18 Temp: 02 Sat: 90 ECG Mon: 4. Pain Intensity: 9 5. Fall Risk: Dizziness: N Needs help standing or walking: N Fallen in the last 3 months: N Fall risk comments: 6. Patient on Blood Thinner: None 7. History of Hypertension: Y 8. Opioid Therapy greater than 6 weeks: Y Opiate Contract Signed: 11/28/15 9. Risk Assessment Tool Provided: LOW RISK 04/13 10. Functional Assessment Tool: 11. Recreational Drug Use: Never Drug Type: Tobacco Use: Former Smoker Tobacco Type: Amount or Packs/day: How Many Years: Alcohol Use: No Frequency: Quant:
--- NOTE | 2018-07-04 07:41 | HPC ---
[facility] [address] [place] [address] PAIN MANAGEMENT CONSULTATION Name: BASILIA DIAZ Room #: REG [facility].#: [id number] Admission: 07/03/18 ������������������ Attend Phys: Janneth Malone Discharge: ������������������ Date of : 38 Report #: [id number] THIS REPORT FOR: //name// CC: Janneth Chew DATE OF SERVICE: 07/03/2018 CHIEF COMPLAINT: Low back pain, left leg pain and bilateral foot pain. HISTORY OF PRESENT ILLNESS: The patient returns to the pain clinic today for refill of her medications. She was given 1 month in May since she had been out of her medications early. We at that time did a urine drug screen on the patient. She tells me since that time, she found all of her extra pills at her daughter's house. She tells me now that she is keeping them safeguarded at her own house and will not make that mistake again. She did not take any of the clonidine that we gave her for withdrawal symptoms. She tells me that was not needed. She is complaining of increasing foot pain today, wondering if she could increase her Lyrica. She currently takes 100 mg at bedtime. She does not complain of any daytime somnolence or any constipation. Her pain score today is 9/10, worse with activities. The medication is helpful. She is in a wheelchair today here, present with her . ALLERGIES: CODEINE and ADHESIVE TAPE. CURRENT MEDICATIONS: Clonazepam 0.5 mg at bedtime, Lyrica 100 mg at bedtime, Thomson 10/325 four times a day, losartan potassium 50 mg b.i.d., diclofenac gel to extremities as needed, Norvasc 5 mg b.i.d., Seroquel 400 mg at bedtime, Tylenol Arthritis as needed, multivitamin daily, Lasix 40 mg daily, Lomotil as needed, Synthroid 200 mcg daily and metoprolol XL 50 mg daily. PQRS: 1. She has osteoarthritic changes in her lower extremities as well as in her back. She denies any rheumatoid arthritis. 2. Height is 5 feet 3 inches, weight is 226 and BMI is 40. 3. Vital signs: Blood pressure 117/74, pulse is 85, respirations 18 and oxygen sat is 90. 4. Pain score is 9/10. 5. Fall risk. Denies dizziness. Does not need help walking or standing. Has not fallen in the last 3 months, in a wheelchair today, though. 6. The patient is not on any blood thinners, does take medicines for hypertension. 7. Opioid therapy is greater than 6 weeks; therefore, an opioid signed contract is on the chart. 8. Risk assessment tool is low. Her functional assessment is 57/70. 9. Recreational drug use, she denies. [place] [address] PAIN MANAGEMENT CONSULTATION Name: BASILIA DIAZ Room #: REG [facility] Juli#: [id number] Admission: 07/03/18 ������������������ Attend Phys: Janneth Malone Discharge: ������������������ Date of : 38 Report #: [id number] drink alcohol. We did check the prescription monitoring system. The patient is filling appropriately with her medications in a timely fashion today and is due for a refill by a few days. Her last drug screen was negative for her medications as was expected as she has been out for several days. Her Lyrica though was positive. The patient tells me that she has safeguarding her medicines now keeping them in one spot and not taking them anywhere except for a few pills if she travels for the day. PHYSICAL EXAMINATION: GENERAL: This is a well-developed, well-nourished white female who is obese. She is sitting in a wheelchair today. She is alert and orientated and her speech is fluent. HEENT: Normocephalic and atraumatic. Extraocular eye muscles are intact. Mucous membranes are moist. MUSCULOSKELETAL: Upper muscle strength is judged to be 4/5 in her lower extremities. She does have 2+ edema in her lower extremities as well. Complains of slight pain across her lower back. She is in a wheelchair, but she does walk with an antalgic gait for me. ASSESSMENT: 1. Chronic lumbar radicular pain status post lumbar decompression laminectomy. 2. Axial back pain. 3. Lumbar spondylosis with myelopathy. 4. History of congestive heart failure. 5. Manage medication management under terms of written opioid agreement. We reviewed the fact that opiate medications are being used to provide analgesia adequate to support activities of daily living, not attempting to achieve a specific pain score on the 0-10 Visual Analog Scale. The current opiate medications are providing sufficient analgesia to allow the patient to participate in activities of daily living. The patient is not exhibiting any aberrant behavior suggestive of drug diversion. The patient is not having any adverse reactions to medications. The patient is not suffering from daytime somnolence or mental acuity changes. The patient is managing opiate-induced constipation with appropriate bsau-fsh-wvtiayh agents and dietary considerations. The patient was counseled on concern for caution with operating a motor vehicle while using opiate medications. A physical exam was performed and the patient's functional status was evaluated. All patients with back pain were advised against the bed rest greater than 4 days and were advised to return to normal activities. Pain score assessment was noted and the treatment plan was reviewed with the patient. All current medications, both prescribed and OTC were reviewed and reconciled on the electronic medical record. Tobacco screening was accomplished and smoking [facility] [address] [place] [address] PAIN MANAGEMENT CONSULTATION Name: BASILIA DIAZ Room #: REG [facility]..#: [id number] Admission: 07/03/18 ������������������ Attend Phys: Janneth Malone Discharge: ������������������ Date of : 38 Report #: [id number] cessation was advised when indicated. BMI was noted and diet/exercise modification was recommended for all patients following outside normal parameters. I reviewed with the patient today their responsibilities to safeguard prescription medications, reviewed their responsibility to utilize medications only as prescribed by the physician. They are to seek and receive pain medications only from 1 physician group ( [facility]). They are to use 1 pharmacy and keep the clinic informed if they change pharmacies. Their responsibilities include making followup visits in a timely fashion and to avoid abrupt discontinuation of medication usage. Their responsibilities further include bringing their medications (bottles from the pharmacy with residual pills) to the visit for possible confirmation of pill counts and the patient understands it is their responsibility to submit to random drug screens to ensure both that the medications prescribed are present, and that no other controlled substances are present. All prescriptions provided today were generated electronically. PLAN: 1. We discussed treatment options with the patient today. The patient tells me that she did find her medications at her daughter's, so the last month when she told me she was out at her home, but they were found to be in a pill bottle with her name on at her daughter's house. I have reminded the patient to safeguard all of her medications at all times. She is needed to be accountable for them and keep them safeguarded at her house. The patient verbalizes understanding and she did present to me 2 pill bottles today, script given for hydrocodone 10/325, #120 to be released today and in 4 weeks. 2. We did discuss the patient's complaints of burning pain in her feet, was wondering if she could increase her Lyrica. She currently takes 100 mg at bedtime. I have provided the patient with samples of 50 mg tablets to take once in the morning for 7 days if this is helpful but she continues to have pain, she may increase it to 100 mg twice a day if it is helpful and she no longer has that pain, then she is to remain at the 50 mg of Lyrica in the morning and 100 at night. I explained to her lowest most effective dose. The patient verbalizes understanding. 3. Script given for Voltaren gel today with refills. The patient does not need any other medicines today: 4. The patient is seen in collaboration today with Dr. Hector Mir. ��������������������������������������������� <ELECTRONICALLY SIGNED> ���������������������������������������� By: Janneth Malone ��������������������������������������������� 07/04/18 0741 [id number] Janneth Malone /nt
== END ==
LOC: PAIN 06:55
DX: M47.26 Other spondylosis with radiculopathy, lumbar region (principal); I50.9 Heart failure, unspecified; M96.1 Postlaminectomy syndrome, not elsewhere classified; Z79.891 Long term (current) use of opiate analgesic; Z79.899 Other long term (current) drug therapy

== ENCOUNTER → 2018-08-02 | Outpatient (CLI) | payer OTHER, MEDICARE ==
[~2018-08-02] VITALS: Ht 160 cm; Wt 107.0 kg
[2018-08-02 11:19] VITALS: BP 145/68
--- NOTE | 2018-08-02 11:24 | NUR ---
Pain Clinic Assessment: 1. History of Osteoarthritis: Left Lower Extremity Left Upper Extremity Right Lower Extremity Right Upper Extremity History of Rheumatoid Arthritis: Not Applicable 2. Height: 5 ft. 3 in. 160.0 cm. Weight: 236.0 lb. oz. 107.049 kg. Patient's BMI: 41.8 3. Vital Signs: BP: 145/68 Pulse: 87 Resp: 16 Temp: 02 Sat: 93 ECG Mon: 4. Pain Intensity: 9 5. Fall Risk: Dizziness: N Needs help standing or walking: N Fallen in the last 3 months: N Fall risk comments: 6. Patient on Blood Thinner: None 7. History of Hypertension: Y 8. Opioid Therapy greater than 6 weeks: Y Opiate Contract Signed: 11/28/15 9. Risk Assessment Tool Provided: LOW RISK 04/13 10. Functional Assessment Tool: 11. Recreational Drug Use: Never Drug Type: Tobacco Use: Former Smoker Tobacco Type: Amount or Packs/day: How Many Years: Alcohol Use: No Frequency: Quant:
--- NOTE | 2018-08-03 14:50 | HPC ---
[facility] [address] [place] [address] PAIN MANAGEMENT CONSULTATION Name: BASILIA DIAZ Room #: REG [facility].#: [id number] Admission: 08/02/18 ������������������ Attend Phys: Janneth Malone Discharge: ������������������ Date of : 39 Report #: [id number] THIS REPORT FOR: //name// CC: Janneth Chew DATE OF SERVICE: 08/02/2018 CHIEF COMPLAINT: Low back pain, left leg pain and bilateral foot pain. HISTORY OF PRESENT ILLNESS: This is a pleasant 78-year-old female who returned to the pain clinic today. She is here with her . She came in a wheelchair today for refill of her medications. She tells me that her pain today is a 9/10, though she is feeling better. She feels that her last visit we increased her Lyrica from 100 daily to 100 b.i.d., she finds this has been quite beneficial in helping her legs and feet. She feels that she is having less cramping and numb, and even has less swelling in her legs. She does complain of ongoing low back pain and left leg pain that is a sharp, achy, cramping pain, worse with activity and walking, better with her medications and heat. The patient is here for a refill of her medications today. ALLERGIES: CODEINE AND ADHESIVE TAPE. MEDICATIONS: Clonazepam 0.5 mg at bedtime, Lyrica 100 mg b.i.d., hydrocodone 10/325 q.i.d., losartan 50 mg b.i.d., diclofenac gel p.r.n., amlodipine, Seroquel, Tylenol Arthritis, multivitamin, Lasix, Lomotil, Synthroid and Toprol XL. PQRS: 1. She has arthritic changes in her lower extremities as well as in her back. She denies any rheumatoid arthritis. 2. Height is 5 feet 3 inches, weight is 236. BMI is 41. 3. Vital signs: 145/68, pulse is 87, respirations 16 and oxygen sat is 93. 4. Pain score is 9/10. 5. Denies dizziness. Does need help walking and standing, has not fallen in the last 3 months. 6. The patient is not on any blood thinners and does take medicine for hypertension. 7. Opiate therapy is greater than 6 weeks; therefore, an opiate signed contract is on the chart. Her risk assessment tool is low. Her functional assessment is 57/70. 8. Recreational drug use, she denies. She is a former smoker and does not drink alcohol. We did check the prescription monitoring system. The patient is filling appropriately from her medications. There is a drug screen within the last few [address] [address] PAIN MANAGEMENT CONSULTATION Name: BASILIA DIAZ [id number] Admission: 08/02/18 ������������������ Attend Phys: Janneth Malone Discharge: ������������������ Date of : 39 Report #: [id number] months in the chart. The patient tells me she is safeguarding all of her medications now. ASSESSMENT: 1. Chronic lumbar radicular pain, status post lumbar decompression and laminectomy. 2. Axial low back pain. 3. Lumbar spondylosis with myelopathy. 4. History of congenital heart failure requiring oxygen supplement. 5. Management of high-risk medications under terms of written opioid agreement. We reviewed the fact that opiate medications are being used to provide analgesia adequate to support activities of daily living, not attempting to achieve a specific pain score on the 0-10 Visual Analog Scale. The current opiate medications are providing sufficient analgesia to allow the patient to participate in activities of daily living. The patient is not exhibiting any aberrant behavior suggestive of drug diversion. The patient is not having any adverse reactions to medications. The patient is not suffering from daytime somnolence or mental acuity changes. The patient is managing opiate-induced constipation with appropriate eace-pwm-avlgldt agents and dietary considerations. The patient was counseled on concern for caution with operating a motor vehicle while using opiate medications. A physical exam was performed and the patient's functional status was evaluated. All patients with back pain were advised against the bed rest greater than 4 days and were advised to return to normal activities. Pain score assessment was noted and the treatment plan was reviewed with the patient. All current medications, both prescribed and OTC were reviewed and reconciled on the electronic medical record. Tobacco screening was accomplished and smoking cessation was advised when indicated. BMI was noted and diet/exercise modification was recommended for all patients following outside normal parameters. I reviewed with the patient today their responsibilities to safeguard prescription medications, reviewed their responsibility to utilize medications only as prescribed by the physician. They are to seek and receive pain medications only from 1 physician group ( [facility]). They are to use 1 pharmacy and keep the clinic informed if they change pharmacies. Their responsibilities include making followup visits in a timely fashion and to avoid abrupt discontinuation of medication usage. Their responsibilities further include bringing their medications (bottles from the pharmacy with residual pills) to the visit for possible confirmation of pill counts and the patient understands it is their responsibility to submit to random drug screens to ensure both that the medications prescribed are present, and that no other controlled substances are present. All prescriptions provided today were generated electronically. [address] [address] PAIN MANAGEMENT CONSULTATION Name: BASILIA DIAZ Room #: REG [facility]#: [id number] Admission: 08/02/18 ������������������ Attend Phys: Janneth Malone Discharge: ������������������ Date of : 39 Report #: [id number] PHYSICAL EXAMINATION: GENERAL: This is a well-developed, well-nourished white female who is obese. She is sitting in her wheelchair today. She is alert and orientated. Her speech is fluent. HEENT: Normocephalic and atraumatic. Extraocular eye muscles are intact. Mucous membranes are moist. MUSCULOSKELETAL: Upper extremity strength judged to be 4/5 and in her lower extremity also judged to be 4/5 in all major muscle groups. The patient does have 2+ edema in her left leg and 3+ in her right leg. The patient is in a wheelchair today, but does get up to move and has an antalgic gait. PLAN: 1. We discussed treatment options with the patient today. The patient tells me that the Lyrica increase has significantly helped her pain in her legs and especially her cramping sensations that she feels. The patient has significant less swelling in her legs today. I did encourage her to continue her Lasix as prescribed and make sure she does take her potassium supplement on the days that she does take her Lasix and that should also help with her cramping sensation in her legs. 2. The patient requesting a prescription for TENS unit. She tells me that she has had one in the past, but it is old and has broken and would like another one. Scripts given today for a TENS unit replacement. She will go to the Physical Therapy Department for this. 3. Scripts given today for her clonazepam 0.5 mg #30 with two additional refills, Lyrica 100 mg b.i.d., #60 with two additional refills, Voltaren gel 1% 2 tubes with two refills and hydrocodone 10/325, #120. 4. The patient will be seen in one months' time period for her narcotic medications. The patient is agreeable to this. 5. Dr. Stanton did see the patient and collaborated with care today. ��������������������������������������������� <ELECTRONICALLY SIGNED> ���������������������������������������� By: Janneth Malone ��������������������������������������������� 08/03/18 1450 [id number] Janneth Malone /nt
== END ==
LOC: PAIN 08-01 07:02
DX: M47.16 Other spondylosis with myelopathy, lumbar region (principal); I11.0 Hypertensive heart disease with heart failure; I50.9 Heart failure, unspecified; Z88.5 Allergy status to narcotic agent; Z91.09 Other allergy status, other than to drugs and biological substances; Z79.899 Other long term (current) drug therapy; Z79.891 Long term (current) use of opiate analgesic

== ENCOUNTER → 2018-08-30 | Outpatient (CLI) | payer OTHER, MEDICARE ==
[~2018-08-30] VITALS: Ht 160 cm; Wt 107.0 kg
[2018-08-30 12:40] VITALS: BP 102/48
--- NOTE | 2018-08-30 12:44 | NUR ---
Pain Clinic Assessment: 1. History of Osteoarthritis: Left Lower Extremity Left Upper Extremity Right Lower Extremity Right Upper Extremity History of Rheumatoid Arthritis: Not Applicable 2. Height: 5 ft. 3 in. 160.0 cm. Weight: 236.0 lb. oz. 107.049 kg. Patient's BMI: 41.8 3. Vital Signs: BP: 102/48 Pulse: 68 Resp: 18 Temp: 02 Sat: 93 ECG Mon: 4. Pain Intensity: 9 5. Fall Risk: Dizziness: Y Needs help standing or walking: N Fallen in the last 3 months: N Fall risk comments: 6. Patient on Blood Thinner: None 7. History of Hypertension: Y 8. Opioid Therapy greater than 6 weeks: Y Opiate Contract Signed: 11/28/15 9. Risk Assessment Tool Provided: LOW RISK 04/13 10. Functional Assessment Tool: 11. Recreational Drug Use: Never Drug Type: Tobacco Use: Former Smoker Tobacco Type: Amount or Packs/day: How Many Years: Alcohol Use: No Frequency: Quant:
--- NOTE | 2018-08-31 08:15 | HPC ---
[facility] [address] [place] [address] PAIN MANAGEMENT CONSULTATION Name: BASILIA DIAZ Room #: REG [facility].#: [id number] Admission: 08/30/18 ������������������ Attend Phys: Janneth Malone Discharge: ������������������ Date of : 39 Report #: [id number] THIS REPORT FOR: //name// CC: Janneth Chew DATE OF SERVICE: 08/30/2018 CHIEF COMPLAINT: Low back pain, left leg pain and bilateral foot pain. HISTORY OF PRESENT ILLNESS: This is a pleasant 78-year-old female who returns to the pain clinic today for refill of her medications. She is presently in a wheelchair and here with her today. She tells me she is doing so much better than she used to do. She feels like her pain is better controlled, though she is still rating her pain at 9/10. She tells me that she thinks the Lyrica has been very helpful in controlling a lot of her pain. She does tell me that her pain is exacerbated by walking, standing and activity, better with her medications, heat and rest. It is a sharp, achy, tender, cramping, tingly filling that she is experiencing. She denies any problems with constipation or daytime sleepiness, though today she does not feel like she has much energy. From the last visit, we did write an order for her to get a new TENS unit. She is going to the Physical Therapy Department today to have this prescription filled and get a new unit at therapy. ALLERGIES: CODEINE AND ADHESIVE TAPE. CURRENT MEDICATIONS: Hydrocodone 10/325 up to 4 times a day, Voltaren gel as needed, Lyrica 100 mg b.i.d., clonazepam 0.5 mg at bedtime, amlodipine 5 mg b.i.d., Seroquel 400 mg at bedtime, multivitamin, Lasix 40 mg daily, Synthroid 200 mcg daily, Toprol-XL 100 mg daily. PQRS: 1. The patient has arthritic changes in her lower extremities as well as in her lumbar spine. She denies any rheumatoid arthritis. 2. Height is 5 feet 3 inches, weight is 236, BMI is 41. 3. Vital signs 102/48, pulse 68, respirations 18, oxygen sat is 93. 4. Pain score is 9/10. 5. Fall risk. She denies. Complains of dizziness and does need help with walking and she has not fallen in the last 3 months. 6. The patient is not on any blood thinners, but does take medicine for hypertension. 7. Opioid therapy is greater than 6 weeks; therefore, an opioid signed contract is on the chart. Her risk assessment tool is low. Her functional assessment is 57/70. 8. Recreational drug use, she denies. She is [place] [address] PAIN MANAGEMENT CONSULTATION Name: BASILIA DIAZ Room #: REG [facility]#: [id number] Admission: 08/30/18 ������������������ Attend Phys: Janneth Malone Discharge: ������������������ Date of : 39 Report #: [id number] drink alcohol. We did check the prescription monitoring system. The patient is filling appropriately for her medications by Dr. Stanton and is due for her medications today. We did check a urine drug screen in the last few months, which is appropriate. She is safeguarding her meds at all times. PHYSICAL EXAMINATION: GENERAL: This is a well-developed, well-nourished white female who is obese. She is sitting in her wheelchair today. She is alert and orientated. Her speech is fluent, rating her pain score today at 9/10. HEENT: Normocephalic, atraumatic. Extraocular eye muscles are intact. Mucous membranes are moist. Her lips are slightly bluish. The oxygen level is at 93%. MUSCULOSKELETAL: Upper extremity strength judged to be 4/5 and 4/5 in her lower extremities as well in all major muscle groups. The patient does have 1+ edema in her lower extremities today, which is much improved from previous visits. The patient does have an antalgic gait, complains of tenderness also across her lumbar region of her back. ASSESSMENT: 1. Chronic lumbar radiculopathy, status post lumbar decompression and laminectomy. 2. Lumbar back pain. 3. Lumbar spondylosis with myelopathy. 4. History of congestive heart failure requiring oxygen supplement. 5. Management of high-risk medications under terms of written opioid agreement and hypertension. We reviewed the fact that opiate medications are being used to provide analgesia adequate to support activities of daily living, not attempting to achieve a specific pain score on the 0-10 Visual Analog Scale. The current opiate medications are providing sufficient analgesia to allow the patient to participate in activities of daily living. The patient is not exhibiting any aberrant behavior suggestive of drug diversion. The patient is not having any adverse reactions to medications. The patient is not suffering from daytime somnolence or mental acuity changes. The patient is managing opiate-induced constipation with appropriate gjfx-bme-nblelrx agents and dietary considerations. The patient was counseled on concern for caution with operating a motor vehicle while using opiate medications. A physical exam was performed and the patient's functional status was evaluated. All patients with back pain were advised against the bed rest greater than 4 days and were advised to return to normal activities. Pain score assessment was noted and the treatment plan was reviewed with the patient. All current medications, both prescribed and OTC were reviewed and reconciled on the electronic medical record. Tobacco screening was accomplished and smoking [facility] [address] [place] [address] PAIN MANAGEMENT CONSULTATION Name: BASILIA DIAZ Room #: REG [facility].#: [id number] Admission: 08/30/18 ������������������ Attend Phys: Janneth Malone Discharge: ������������������ Date of : 39 Report #: [id number] cessation was advised when indicated. BMI was noted and diet/exercise modification was recommended for all patients following outside normal parameters. I reviewed with the patient today their responsibilities to safeguard prescription medications, reviewed their responsibility to utilize medications only as prescribed by the physician. They are to seek and receive pain medications only from 1 physician group ( [facility]). They are to use 1 pharmacy and keep the clinic informed if they change pharmacies. Their responsibilities include making followup visits in a timely fashion and to avoid abrupt discontinuation of medication usage. Their responsibilities further include bringing their medications (bottles from the pharmacy with residual pills) to the visit for possible confirmation of pill counts and the patient understands it is their responsibility to submit to random drug screens to ensure both that the medications prescribed are present, and that no other controlled substances are present. All prescriptions provided today were generated electronically. PLAN: 1. We discussed treatment options with the patient today. The patient tells me she feels like she is doing quite well on her current pain regimen. She is only needing hydrocodone 10/325 filled today. Script given for 120. The patient has plenty of refills of her clonazepam, Lyrica and Voltaren gel. 2. The patient does tell me that her Lyrica, she feels that has helped her significantly with her nerve pain and is very thankful to have that medication. She only has slight edema in her feet, but much better than in the past. 3. The patient's blood pressure was quite low today. We talked about her blood pressure medicines. I encouraged her to take her blood pressure with her own home machine prior to taking her medication. She is having symptoms of dizziness and feeling slightly off balanced and her blood pressure was 102/48 today. We also discussed the patient's oxygen level when she first arrived in the clinic, it was 90%. We did have that increased to 93 and we encouraged the patient to use her supplemental oxygen when she is active. 4. Dr. Stanton did see the patient as well and collaborated care today. ��������������������������������������������� <ELECTRONICALLY SIGNED> ���������������������������������������� By: Janneth Malone ��������������������������������������������� 08/31/18 0815 1322 [id number] Janneth Malone /isaac
== END ==
LOC: PAIN 07:06
DX: M47.16 Other spondylosis with myelopathy, lumbar region (principal); M47.26 Other spondylosis with radiculopathy, lumbar region; G89.29 Other chronic pain; M25.571 Pain in right ankle and joints of right foot; M25.572 Pain in left ankle and joints of left foot; I50.9 Heart failure, unspecified; Z88.5 Allergy status to narcotic agent; Z79.899 Other long term (current) drug therapy; Z79.891 Long term (current) use of opiate analgesic; Z99.81 Dependence on supplemental oxygen